=== PATIENT | female | born 1985 | race Caucasian/White ===

== ENCOUNTER 2024-02-21 14:45 | Emergency (ER) | payer OTHER ==
[~2024-02-21] VITALS: Ht 160 cm; Wt 70.9 kg
[2024-02-21 15:03] VITALS: BP 98/68; PULSE 113; RESP 19; O2SAT 98
[2024-02-21] MEDS ORDERED: CEFD300C3 PO (15:10)
[2024-02-21 15:16] VITALS: TEMP 99.2
== END 2024-02-21 15:24 | disposition home or self-care (01) ==
LOC: ER 14:45
DX: J02.9 Acute pharyngitis, unspecified (principal)
CPT/HCPCS: 99283

== ENCOUNTER 2024-08-17 09:18 | Emergency (ER) | payer OTHER ==
[~2024-08-17] VITALS: Ht 157.5 cm; Wt 68.9 kg
[2024-08-17 09:23] VITALS: BP 122/73; PULSE 60; RESP 18; O2SAT 99
[2024-08-17 10:39] VITALS: TEMP 97.7
== END 2024-08-17 10:40 | disposition home or self-care (01) ==
LOC: ER 09:18
DX: S69.92XA Unspecified injury of left wrist, hand and finger(s), initial encounter (principal); Z88.0 Allergy status to penicillin; W23.0XXA Caught, crushed, jammed, or pinched between moving objects, initial encounter; Y93.89 Activity, other specified; Y92.89 Other specified places as the place of occurrence of the external cause; Y99.8 Other external cause status
CPT/HCPCS: 73140; 99283